=== PATIENT | male | born 1960 | race Caucasian/White ===

== ENCOUNTER → 2020-10-10 | Outpatient (CLI) | payer OTHER | LOC: CAT 10:36 | PROVIDERS: ATTEND Family Medicine | DX: Z13.6 Encounter for screening for cardiovascular disorders (principal); I25.10 Atherosclerotic heart disease of native coronary artery without angina pectoris; E78.00 Pure hypercholesterolemia, unspecified ==

== ENCOUNTER 2021-08-23 16:18 | Emergency (ER) | payer BC | END 2021-08-23 17:41 | disposition home or self-care (01) | LOC: ER 16:18 | DX: U07.1 COVID-19 (principal); E78.00 Pure hypercholesterolemia, unspecified ==